=== PATIENT | female | born 1980 | race Hispanic/Latino ===

== ENCOUNTER → 2024-09-19 | Outpatient (REF) | payer OTHER | LOC: NM 10:54 | PROVIDERS: ATTEND Student in an Organized Health Care Education/Training Program | DX: M25.561 Pain in right knee (principal); M25.461 Effusion, right knee; M17.11 Unilateral primary osteoarthritis, right knee; M79.7 Fibromyalgia; Z79.899 Other long term (current) drug therapy | CPT/HCPCS: 78315; A9503 ==